=== PATIENT | female | born 2000 | race Two or more races ===

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

== ENCOUNTER 2020-12-02 10:07 | Inpatient (IN) | payer BC, OTHER ==
[~2020-12-02] VITALS: Ht 160 cm; Wt 86.6 kg
--- NOTE | 2020-12-03 18:23 | PR ---
[facility] [address] [facility] [place], [place] [address] Signed Progress Notes IP Datetime Report Generated by CPN: 12/03/2020 18:23 PROGRESS NOTES: [id number] Impression: Normal Progression of Labor; Reassuring Heart Rate Procedures: Sterile Vag Exam Plan: Continue Present Management; Anticipate Vaginal Delivery Informed Consent Obtain: Vaginal Delivery VITAL SIGNS: [id number] Vital Signs: Reviewed; Within Normal Limits EXAM: [id number] Dilatation: 5.0 Effacement: 90 Station: -1 Contractions: q 3-4 min per pt, painful MEMBRANES: [id number] Comments: Pt seen and examined. Comfortable w/ epidural. Ihsan well and making adequate cervical change. Reviewed anticipated course of labor. All questions answered FETUS A: [id number] FHR Baseline: 120 Variability: Moderate 6-25bpm Accelerations: 15X15 Decelerations: None FHR Category: Category I Presentation: Vertex Comments on Fetus A: No evidence of metabolic acidosis FETUS B: [id number] Signing Physician: Cain Alfaro DO Copies: ~ *Electronically Signed* 12/03/20 182 CAIN ALFARO DO PATIENT NAME: YNES EDDY PROGRESS NOTE DATE OF : 00 PHYSICIAN: CAIN ALFARO DO RPT #: [id number] REPORT IS CONFIDENTIAL AND NOT TO BE RELEASED WITHOUT AUTHORIZATION
--- NOTE | 2020-12-05 10:35 | PR ---
[facility] [address] [place], [place] [address] Signed PP Progress Notes Datetime Report Generated by CPN: 12/05/2020 10:35 SUBJECTIVE: [id number] Pain: Within Normal Limits Nausea/Vomiting: Denies Flatus: Yes Bowel Movement: Yes Vital Signs: R7149144 Vital Signs: Reviewed; Within Normal Limits Cardiovascular: Normal Respiratory: Normal Abdomen/Uterus: Normal Lochia: Not Done Vulva/Perineum: Not Done Breasts: Not Done CVA Tenderness: Normal Extremities: Normal Incision: Not Applicable Progress: Normal Exam Comments: Fundus firm U-2 nontender IMPRESSION/PLAN/PROCEDURES: [id number] Impression: Normal Progression Plan: Discharge Progress Notes: Pt seen and examined. Doing well. Ambulating, voiding, and tolerating full diet. Pain and lochia minimal. well. No concerns. Desires d/c home this morning. Reviewed discharge instructions in detail. Unsure of pp contraception plans. All questions answered. Signing Physician: Cain Alfaro DO Copies: ~ *Electronically Signed* 12/05/20 1035 CAIN ALFARO DO PATIENT NAME: YNES EDDYASITA PROGRESS NOTE DATE OF : 00 PHYSICIAN: CAIN ALFARO DO RPT #: [id number] REPORT IS CONFIDENTIAL AND NOT TO BE RELEASED WITHOUT AUTHORIZATION
== END 2020-12-05 10:40 | disposition home or self-care (01) | DRG 807 ==
LOC: FBC 12-03 09:14
PROVIDERS: ADMIT Obstetrics & Gynecology; ATTEND Obstetrics & Gynecology
PROC: 10E0XZZ Delivery of Products of Conception, External Approach (ICD-10-PCS; principal; 2020-12-03)
PROC: 00HU33Z Insertion of Infusion Device into Spinal Canal, Percutaneous Approach (ICD-10-PCS; 2020-12-03)
PROC: 3E0R3BZ Introduction of Anesthetic Agent into Spinal Canal, Percutaneous Approach (ICD-10-PCS; 2020-12-03)
DX: O13.4 Gestational [pregnancy-induced] hypertension without significant proteinuria, complicating childbirth (principal); Z37.0 Single live birth; Z3A.39 39 weeks gestation of pregnancy; O99.344 Other mental disorders complicating childbirth; F41.9 Anxiety disorder, unspecified; F32.9 Major depressive disorder, single episode, unspecified; O69.81X0 Labor and delivery complicated by cord around neck, without compression, not applicable or unspecified; O99.02 Anemia complicating childbirth; D64.9 Anemia, unspecified; Z87.440 Personal history of urinary (tract) infections; Z79.82 Long term (current) use of aspirin
CPT/HCPCS: 01960; 36415; 85027; A9270; J2590; J2795; J7121

== ENCOUNTER 2023-08-21 19:15 | Emergency (ER) | payer BC, OTHER ==
[~2023-08-21] VITALS: Ht 160 cm; Wt 71.7 kg
--- OUTSIDE RECORDS SUMMARY | 2023-08-21 19:22 | XMS ---
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 Care History Medical/Surgical 05/15/2019 [facility] - PATIENT CURRENTLY HAS MARYJANE WAITE. - YESENIA M[facility] PROGRAMShalonda Dietrich VISIT COUNT (12 MO.) [address] [place] [address] TOTAL 1 NOTE: Visits indicate total known visits. ED/UCC VISIT TRACKING (12 MO.) 08/21/2023 19:16 [facility] TYPE: Emergency COMPLAINT: - GENITAL PROBLEM INPATIENT VISIT TRACKING (12 MO.) No inpatient visits to display in this time frame [email or web address]
[2023-08-21 20:39] VITALS: BP 146/96
[2023-08-21 21:25] LABS: N. GONORRRHOEAE BY PCR NOT DETECTED (NOT DETECT)
== END 2023-08-21 20:39 | disposition home or self-care (01) ==
LOC: ED 19:15
PROVIDERS: Family Medicine
DX: A56.2 Chlamydial infection of genitourinary tract, unspecified (principal)
CPT/HCPCS: 84703; A9270; J0696

== ENCOUNTER 2024-03-24 14:08 | Emergency (ER) | payer BC, OTHER ==
[~2024-03-24] VITALS: Ht 160 cm; Wt 89.6 kg
[2024-03-24] MEDS ORDERED: ONDANSETRON 4 MG TAB ODT SL ONE (14:30)
[2024-03-24] MEDS ORDERED: ONDANSETRON ODT8 MG PO (14:51)
[2024-03-24 15:03] VITALS: BP 141/88
== END 2024-03-24 15:03 | disposition home or self-care (01) ==
LOC: ED 14:08
DX: S06.0X0A Concussion without loss of consciousness, initial encounter (principal); W22.8XXA Striking against or struck by other objects, initial encounter
CPT/HCPCS: 70450; 99283-25; A9270